=== PATIENT | female | born 1960 | race Caucasian/White ===

== ENCOUNTER 2022-01-20 09:03 | Outpatient (CLI) | payer BC ==
[2022-01-20 10:14] LABS: Hemoglobin 14.5 g/dL (12.0-15.5); Mean Corpuscular HGB CONC 34.4 g/dL (32.0-36.0); Mean Corpuscular Hemoglobin 34.2 pg (27.0-33.0); Mean Corpuscular Volume 99.3 fl (81.6-98.3); Mean Platelet Volume 10.1 fl (7.4-10.4); Platelet Count 199 10x3/uL (150-450); RBC Distribution Width 11.9 % (11.5-14.5); Red Blood Cell (RBC) Count 4.24 10x6/uL (3.90-5.03); White Blood Cell (WBC) Count 5.3 10x3/uL (3.5-10.5)
[2022-01-20 10:33] LABS: Anion Gap 12 mmol/L (10-20); BUN (Urea Nitrogen) 18 mg/dL (9.8-20.1); Calc. Creatinine Clearance 0 mL/min (70-130); Calcium 8.7 mg/dL (7.8-10.44); Carbon Dioxide 26 mmol/L (23-31); Chloride 105 mmol/L (98-107); Glucose 89 mg/dL (80-115); Potassium 4.3 mmol/L (3.5-5.1); Sodium 139 mmol/L (136-145)
[2022-01-20 23:46] LABS: SARS-CoV-2 PCR by NAA Not Detected (NotDetected)
== END 2022-01-20 09:04 | disposition home or self-care (01) ==
LOC: CSHLAB 09:03
PROVIDERS: ATTEND Student in an Organized Health Care Education/Training Program
DX: Z01.812 Encounter for preprocedural laboratory examination (principal); Z20.822 Contact with and (suspected) exposure to COVID-19; N95.0 Postmenopausal bleeding
CPT/HCPCS: 80048; 85027; 86850; 86900; 86901; U0003; U0005

== ENCOUNTER 2022-01-25 11:10 | Day surgery (SDC) | payer BC ==
[2022-01-20 10:14] LABS: Hemoglobin 14.5 g/dL (12.0-15.5); Mean Corpuscular HGB CONC 34.4 g/dL (32.0-36.0); Mean Corpuscular Hemoglobin 34.2 pg (27.0-33.0); Mean Corpuscular Volume 99.3 fl (81.6-98.3); Mean Platelet Volume 10.1 fl (7.4-10.4); Platelet Count 199 10x3/uL (150-450); RBC Distribution Width 11.9 % (11.5-14.5); Red Blood Cell (RBC) Count 4.24 10x6/uL (3.90-5.03); White Blood Cell (WBC) Count 5.3 10x3/uL (3.5-10.5)
[2022-01-20 10:33] LABS: Anion Gap 12 mmol/L (10-20); BUN (Urea Nitrogen) 18 mg/dL (9.8-20.1); Calc. Creatinine Clearance 0 mL/min (70-130); Calcium 8.7 mg/dL (7.8-10.44); Carbon Dioxide 26 mmol/L (23-31); Chloride 105 mmol/L (98-107); Glucose 89 mg/dL (80-115); Potassium 4.3 mmol/L (3.5-5.1); Sodium 139 mmol/L (136-145)
[2022-01-20 11:35] VITALS: BMI 35.9
[2022-01-20 23:46] LABS: SARS-CoV-2 PCR by NAA Not Detected (NotDetected)
[2022-01-25] MEDS ORDERED: CeleCOXIB 100 MG CAP ONE (11:30)
[2022-01-25] MEDS ORDERED: Lidocaine 1% MPF 2 ML VIAL ONE (11:31)
[2022-01-25] MEDS ORDERED: ceFAZolin 2 GM/Dextrose 50 ML IVPB ONE (13:55)
[2022-01-25] MEDS ORDERED: Ondansetron PF 4 MG/2 ML Vial ONE (13:56)
[2022-01-25] MEDS ORDERED: Fentanyl 250 MCG/5 ML VIAL ONE (13:56)
[2022-01-25] MEDS ORDERED: Midazolam HCl 2 mg/2 ml Vial ONE (13:56)
[2022-01-25] MEDS ORDERED: Ketorolac Tromethamine 30 MG/ML VIAL ONE (13:56)
[2022-01-25] MEDS ORDERED: PROPOFOL 20 ML ONE (13:56)
[2022-01-25] MEDS ORDERED: Dexamethasone 20 MG/5 ML VIAL ONE (13:56)
[2022-01-25] MEDS ORDERED: Lidocaine 1% PF 5 ML VIAL ONE (13:56)
[2022-01-25] MEDS ORDERED: Meperidine HCl/PF 25 MG/ML VIAL ONE (15:01)
== END 2022-01-25 16:40 | disposition home or self-care (01) ==
LOC: CSHSDC 11:10
PROVIDERS: ATTEND Student in an Organized Health Care Education/Training Program
PROC: 0UDB8ZX Extraction of Endometrium, Via Natural or Artificial Opening Endoscopic, Diagnostic (ICD-10-PCS; principal; 2022-01-25)
DX: N95.0 Postmenopausal bleeding (principal); N89.7 Hematocolpos; N88.2 Stricture and stenosis of cervix uteri; M45.9 Ankylosing spondylitis of unspecified sites in spine; E78.5 Hyperlipidemia, unspecified; Z79.899 Other long term (current) drug therapy; Z88.5 Allergy status to narcotic agent; Z20.822 Contact with and (suspected) exposure to COVID-19
CPT/HCPCS: 36415; 80048; 85027; 86850; 86900; 86901; 88305; J0690; J1100; J1885; J2175; J2250; J2405; J2704; J3010; U0003; U0005

== ENCOUNTER 2022-03-22 21:27 | Emergency (ER) | payer BC ==
[2022-03-22] MEDS ORDERED: diphenhydrAMINE 25 MG CAP ONE (21:50)
[2022-03-22] MEDS ORDERED: predniSONE 20 MG TAB ONE (21:51)
[2022-03-22] MEDS ORDERED: HYDROcodone/Acetaminophen 10/325 mg Tablet ONE (23:17)
[2022-03-23] MEDS ORDERED: HYDROcodone/Acetaminophen 10/325 mg Tablet ONE (04:53)
== END 2022-03-23 04:51 | disposition home or self-care (01) ==
LOC: CSHERS 21:27
DX: M96.89 Other intraoperative and postprocedural complications and disorders of the musculoskeletal system (principal); J98.6 Disorders of diaphragm; J38.00 Paralysis of vocal cords and larynx, unspecified; Z79.899 Other long term (current) drug therapy; Z79.891 Long term (current) use of opiate analgesic; K21.9 Gastro-esophageal reflux disease without esophagitis; E78.5 Hyperlipidemia, unspecified
CPT/HCPCS: 71045; J7512